=== PATIENT | female | born 1985 | race Two or more races ===

== ENCOUNTER 2023-11-03 10:40 | Emergency (ER) | payer OTHER ==
[~2023-11-03] VITALS: Ht 162.6 cm; Wt 61.2 kg
[2023-11-03] MEDS ORDERED: ACETAMINOPHEN WITH CODEINE 1 UDTAB TABLET PO STA (13:57)
[2023-11-03] MEDS ORDERED: DEXAMETHASONE SODIUM PHOSPHATE 4 MG/ML VIAL IM SCH (14:00)
== END 2023-11-03 14:22 | disposition home or self-care (01) ==
LOC: ER 10:41
DX: H66.93 Otitis media, unspecified, bilateral (principal)